=== PATIENT | female | born 2000 | race Caucasian/White ===

== ENCOUNTER 2022-05-17 09:20 | Emergency (ER) | payer OTHER, SELFPAY ==
[2022-05-17 09:28] VITALS: BP 130/77; PULSE 97; RESP 13; TEMP 36.8; O2SAT 98; BMI 21.7
--- NOTE | 2022-05-17 10:08 | XRR_ITS ---
PROCEDURE INFORMATION: Exam: XR Chest Exam date and time: 05/17/2022 10:22 AM Age: 22 years old Clinical indication: Cough TECHNIQUE: Imaging protocol: Radiologic exam of the chest. Views: 1 view. COMPARISON: CR XR chest 1V [id number] 02/07/2017 10:34 AM FINDINGS: Lungs: Normal lung volumes. No interstitial or airspace opacities. Pleural spaces: No pleural effusion. No pneumothorax. Heart/Mediastinum: Normal heart size. Normal mediastinal contour. Midline trachea. Bones/joints: No acute abnormalities. XR/XR chest 1V portable [id number] IMPRESSION: No chest radiographic evidence of acute cardiopulmonary disease.
[2022-05-17] MEDS: acetaminophen 500 mg Tablet 1000 MG PO (10:40)
--- NOTE | 2022-05-17 10:40 | W.ED.GENADLT ---
HPI - General Adult General: Chief complaint: General Medical Stated complaint: congestion,cough Time Seen by Provider: 05/17/22 09:53 History of Present Illness: Patient is a 22-year-old female comes to the ED with upper respiratory symptoms. She has been having headache, nasal congestion and drainage, cough, body aches, fever, chills and right ear pain. Symptoms started yesterday. Denies any nausea or vomiting or abdominal pain. She is able to tolerate p.o. food and fluids. 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 Associated symptoms: Reports headache(s); Deny chest pain, dyspnea, nausea, rash, palpitations or vomiting Review of Systems Const: Reports: fever(s), chills and body aches; Denies: fatigue Eyes: Denies: change in vision or eye discomfort ENMT: Reports: throat pain, ear or mastoid pain (Right ear), nasal discharge and nasal congestion; Denies: odynophagia or ear discharge Card: Denies: chest pain, palpitations, edema, swelling of feet/ankles, dyspnea on exertion or orthopnea Resp: Denies: dyspnea, productive cough or non-productive cough GI: Denies: abdominal pain, nausea, vomiting, diarrhea, constipation or hematochezia : Denies: flank pain, dysuria or hematuria Musc: Denies: neck pain, back pain or extremity swelling Skin/Breast: Denies: rash or new lesions Neuro: Reports: headache(s); Denies: numbness in extremities or weakness in extremities [facility] ED PFSH: Medical History (Updated 05/18/22 @ 07:31 by SARA Raymundo) No pertinent family history Surgical History (Updated 05/18/22 @ 07:31 by SARA Raymundo) No pertinent past surgical history Physical Exam Const: COMMON NORMALS: no acute distress, patient oriented x3, healthy appearing and alert GENERAL APPEARANCE: cooperative and comfortable HENMT: COMMON NORMALS: normocephalic HEAD & SCALP: normocephalic TYMPANIC MEMBRANE: TM normal on the left and TM abnormal TM laterality: right Details: bulging, effusion Details: purulent and erythematous MOUTH: Normal oral and palatal mucosa present THROAT: uvula midline and posterior oropharynx abnormal erythema Neck/C-Spine: COMMON NORMALS: supple GENERAL: Yes normal visual inspection Resp: COMMON NORMALS: normal respiratory effort, No retractions, No use of accessory muscles and clear to auscultation bilaterally AUSCULTATION: clear to auscultation bilaterally Cardio: COMMON NORMALS: regular rate, regular rhythm, S1 normal heart sound present, S2 normal heart sound present, No gallops present (Cardio), No clicks present (Cardio), No murmurs present (Cardio) and Peripheral pulses 2+ throughout RATE: regular rate RHYTHM: regular rhythm HEART SOUNDS: S1 normal heart sound present and S2 normal heart sound present PERIPHERAL PULSES: Peripheral pulses 2+ throughout GI: COMMON NORMALS: Normal to inspection, nondistended, normoactive bowel sounds present, Soft to palpation, non-tender and no masses PALPATION: Yes Soft to palpation : COMMON NORMALS: Yes no CVA tenderness BLADDER/KIDNEY EXAM: Yes no CVA tenderness Back/Pelvis: COMMON NORMALS: no CVA tenderness Extremity: COMMON NORMALS: normal to inspection Neuro: COMMON NORMALS: patient oriented x3 SENSORIUM/ORIENTATION: Yes alert GAIT: Yes Normal gait present Skin: GENERAL SKIN EXAM: dry skin Course Vital Signs: Vital signs: Vital Signs Temperature 98.2 F 05/17/22 09:28 Pulse Rate 97 05/17/22 09:28 Respiratory Rate 13 05/17/22 09:28 Blood Pressure 130/77 05/17/22 09:28 Pulse Oximetry 98 05/17/22 09:28 Oxygen Delivery Me thod 05/17/22 09:28 MDM - General Adult Medical Decision Making Patient is a 22-year-old female who comes to the ED with upper respiratory symptoms. She is also complaining of right ear pain. Vitals are stable. Patient appears nontoxic in no acute distress. She does have otitis media of right ear but rest of exam is benign. Chest x-ray showed no acute findings. Influenza, COVID and strep were all negative. Patient was diagnosed with otitis media and viral URI and was discharged home with a prescription for an antibiotic. Told to follow-up with PCP in the next week for reevaluation. Return ED precautions given. Patient understood and agreed with plan. Lab Data I reviewed the patient's lab results. Radiology Impressions Chest X-Ray 05/17/22 10:08 IMPRESSION: No chest radiographic evidence of acute cardiopulmonary disease. Laboratory Results Influenza Type A Ag negative (Negative) 05/17/22 10:15 Influenza Type B Ag negative (Negative) 05/17/22 10:15 SARS-CoV-2 Ag (Rapid) Negative (Negative) 05/17/22 10:15 Group A Strep Rapid Negative (Negative) 05/17/22 10:15 Discharge Plan Discharge Patient Disposition: Home Clinical Impression: Viral URI Otitis media Qualifiers: Otitis media type: serous Chronicity: acute Laterality: right Recurrence: non-recurrent Qualified Code(s): H65.01 - Acute serous otitis media, right ear Condition: Stable Prescriptions: New amoxicillin-pot clavulanate 500-125 mg tablet 1 tab PO BID 10 Days Qty: 20 0RF Discharge Orders: Discharge ED (Routine); Ordered 05/17/22 Ordered By: Abiodun Nunez Referrals: Claus Gallegos FNP-C [Primary Care Provider] - Discharge Diet: Regular Discharge Activity: Increase activity as tolerated Patient Instructions: Otitis Media - Adult, Upper Respiratory Infection (ED) Activity Restrictions/Additional Instructions: Follow-up with medical provider as directed in the next 5 to 7 days for reevaluation. Take medications as prescribed. Make sure you drink plenty fluids and stay hydrated. Take [id number] Tylenol and Motrin for fevers. Return to the ER or your medical provider if condition worsens. Please read and understand discharge instructions. Thank you for choosing [facility] for your healthcare needs today. Please realize this is an emergency room and that we are providing you with a medical screening exam and this may not be complete and all inclusive of all the testing and or work up that you may need to determine your ailment or severity of your illness. It is very important that you follow up as instructed or that you return to the Emergency Department should you have concerns or if your condition changes or worsens in any way. Coding Level of Care Code ED Line [employer] Work[employer] for [employer] Exam Comprehensive
[2022-05-17 10:49] LABS: Influenza A by IFA negative (Negative); Influenza B by IFA negative (Negative)
[2022-05-17 10:53] LABS: SARS Covid-2 Antigen Negative (Negative)
[2022-05-17 11:16] LABS: Rapid Strep A Test Negative (Negative)
== END 2022-05-17 11:09 | disposition home or self-care (01) ==
PROVIDERS: Emergency Provider Physician Assistant; PCP Nurse Practitioner
DX: J06.9 Acute upper respiratory infection, unspecified (principal); H65.01 Acute serous otitis media, right ear; Z20.822 Contact with and (suspected) exposure to COVID-19
CPT/HCPCS: 71045; 87081; 87426; 87804; 87880; 99283

== ENCOUNTER → 2022-06-02 16:25 | Outpatient (BNVA) | payer OTHER, SELFPAY | PROVIDERS: PCP Nurse Practitioner; Visit Provider Obstetrics & Gynecology | DX: N91.2 Amenorrhea, unspecified (principal); Z01.419 Encounter for gynecological examination (general) (routine) without abnormal findings | CPT/HCPCS: 88175 ==

== ENCOUNTER → 2022-07-28 12:58 | Outpatient (BNVA) | payer OTHER, SELFPAY | PROVIDERS: PCP Nurse Practitioner Family; Visit Provider Obstetrics & Gynecology | DX: Z01.818 Encounter for other preprocedural examination (principal); R87.619 Unspecified abnormal cytological findings in specimens from cervix uteri | CPT/HCPCS: 81025; 88305 ==

== ENCOUNTER 2024-12-06 15:05 | Outpatient (CLI) | payer SELFPAY ==
[2024-12-06 15:15] VITALS: BMI 29.0
[2024-12-06 15:18] VITALS: BP 125/65; PULSE 87
[2024-12-06 15:38] VITALS: BP 122/64; PULSE 81
[2024-12-06 16:06] LABS: Nitrazine Paper, PH Negative
== END 2024-12-06 15:50 | disposition home or self-care (01) ==
LOC: OPOB 15:13 → OBGYN 15:14
PROVIDERS: PCP Nurse Practitioner Family; Visit Provider Obstetrics & Gynecology
DX: O26.899 Other specified pregnancy related conditions, unspecified trimester (principal); Z3A.00 Weeks of gestation of pregnancy not specified; N89.8 Other specified noninflammatory disorders of vagina
CPT/HCPCS: 83986; 99211